=== PATIENT | male | born 1950 | race Caucasian/White ===

== ENCOUNTER 2017-01-03 15:26 | Emergency (ER) | payer BC, MEDICARE ==
[2017-01-03] MEDS ORDERED: diphenhydrAMINE 50 MG/ML SDV IVPUSH ONE (15:39)
[2017-01-03] MEDS ORDERED: Famotidine 20 MG/2 ML SDV IVPUSH ONE (15:39)
[2017-01-03] MEDS ORDERED: Sodium Chloride 0.9% 10 ML Syringe FLUSH PRN (15:39)
[2017-01-03] MEDS ORDERED: methylPREDNISolone Sodium Succinate 125 MG/2 ML SDV IVPUSH ONE (15:39)
[2017-01-03] MEDS ORDERED: Sodium Chloride 0.9% 2.5 ML Syringe FLUSH PRN (15:39)
--- NOTE | 2017-01-03 15:46 | EDM.PDOC ---
ED HPI Allergic Reaction - General Chief Complaint: Allergic Reaction Stated Complaint: POSSIBLE ALLERGIC REACTION Time Seen by Provider: 01/03/17 15:35 - History of Present Illness INITIAL COMMENTS - FREE TEXT/NARRATIVE: HISTORY AND PHYSICAL: History of present illness: Patient is a 66-year-old male with a history of hypertension and cardiac disease who presents with onset gradually of left sided home swelling that started approximately 3 hours ago. The patient states that he did not start suddenly and he does not recall any new foods products and has no known allergies to anything but penicillin. Patient states it is only the left side of his tongue that is bothering him and he is having no difficulty swallowing but due to the size of the tongue is having difficulty speaking. She does not feel short of breath he is not itchy and has no rashes. Earlier patient had no systemic complaints. Patient has a history of using lisinopril and has never had issues with it Review of systems: As per history of present illness and below otherwise all systems reviewed and negative. Past medical history: As per history of present illness and as reviewed below otherwise noncontributory. Surgical history: As per history of present illness and as reviewed below otherwise noncontributory. Social history: No reported history of drug or alcohol abuse. Family history: As per history of present illness and as reviewed below otherwise noncontributory. Physical exam: General: Well-developed well-nourished male who is nontoxic and vital signs were noted by me. He is handling his secretions and maintaining his airway but he does have technical difficulties was speaking due to the swelling of his tongue. HEENT: Atraumatic, normocephalic, pupils reactive, negative for conjunctival pallor or scleral icterus, mucous membranes moist, throat clear, neck supple, nontender, trachea midline. There is anterior cervical adenopathy which is nontender and bilateral and no posterior adenopathy or nuchal rigidity. There is no lip swelling or facial edema seen and the left side of the tongue is completely swollen with rotation of the tongue to the right as a result of this. Airway is patent trachea is midline Lungs: Clear to auscultation, breath sounds equal bilaterally, chest nontender. There is no wheezing or stridor appreciated and no work of breathing Heart: S1S2, regular, negative for clicks, rubs, or JVD. Abdomen: Soft, nondistended, nontender. NABS Skin: There is no evidence of any rashes or urticaria or color changes appreciated Genitourinary: Deferred. Rectal: Deferred. Extremities: Atraumatic, negative for cords or calf pain. Neurovascular unremarkable. Neuro: Awake, alert, oriented. Cranial nerves II through XII unremarkable. Cerebellum unremarkable. Motor and sensory unremarkable throughout. Exam nonfocal. Diagnostics: [] Therapeutics: IV Benadryl Solu-Medrol Pepcid Advised the patient that he needs to stop his lisinopril and contact his provider on Thursday to request a change in this medication. I will advise Benadryl every 6 hours for the next 24-36 hours as well as steroids for home. After his medications we will observe him for a period of time. As the symptoms started over 3 hours prior to coming to the ED the critical window of this edema is likely already passed. Impression: Angioedema of the tongue secondary to lisinopril use Definitive disposition and diagnosis as appropriate pending reevaluation and review of above. - Related Data Allergies/ADRs: Allergies Allergy/AdvReac Type Severity Reaction Status Date / Time Penicillins Allergy Hives Verified 01/03/17 15:37 Home Meds: Home Meds Dapagliflozin/Metformin HCl [Xigduo Xr 10 mg-1,000 mg Tab] 1 each PO DAILY 01/03 [History] Famotidine [Pepcid] 40 mg PO DAILY 01/03/17 [History] Gemfibrozil 600 mg PO BID 01/03/17 [History] Lisinopril 20 mg PO DAILY 01/03/17 [History] Venlafaxine [Effexor XR 24 Hr] 75 mg PO DAILY 01/03/17 [History] ED ROS ALLERGIC REACTION - Review of Systems Review Of Systems: ROS reveals no pertinent complaints other than HPI. ED EXAM GENERAL NO PERIP PULSE - Physical Exam Exam: See Below (See dictation) Course - Vital Signs Last Recorded V/S: Last Vital Signs Temp 36.7 C 01/03/17 16:09 Pulse 80 01/03/17 16:09 Resp 20 01/03/17 16:09 BP 139/89 01/03/17 16:09 Pulse Ox 93 L 01/03/17 16:09 - Orders/Labs/Meds Orders: Active Orders 24 hr Category Date Time Status Sodium Chloride 0.9% [Saline Flush] Med 01/03/17 15:39 Active 10 ml FLUSH ASDIRECTED PRN Sodium Chloride 0.9% [Saline Flush] Med 01/03/17 15:39 Active 2.5 ml FLUSH ASDIRECTED PRN Saline Lock Insert [OM.PC] Stat Oth 01/03/17 15:39 Ordered Medication Orders Sodium Chloride (Saline Flush) 10 ml FLUSH ASDIRECTED PRN PRN Reason: Keep Vein Open Sodium Chloride (Saline Flush) 2.5 ml FLUSH ASDIRECTED PRN PRN Reason: Keep Vein Open Meds: Medications Generic Name Dose Route Start Last Admin Trade Name Freq PRN Reason Stop Dose Admin Sodium Chloride 10 ml 01/03/17 15:39 Saline Flush FLUSH ASDIRECTED PRN Keep Vein Open Sodium Chloride 2.5 ml 01/03/17 15:39 Saline Flush FLUSH ASDIRECTED PRN Keep Vein Open Discontinued Medications Generic Name Dose Route Start Last Admin Trade Name Freq PRN Reason Stop Dose Admin Diphenhydramine HCl 50 mg 01/03/17 15:39 01/03/17 16:00 Benadryl IVPUSH 01/03/17 15:40 50 mg ONETIME ONE Administration Famotidine 20 mg 01/03/17 15:39 01/03/17 16:04 Pepcid IVPUSH 01/03/17 15:40 20 mg ONETIME ONE Administration Methylprednisolone Sodium Succinate 125 mg 01/03/17 15:39 01/03/17 16:02 Solu-Medrol IVPUSH 01/03/17 15:40 125 mg ONETIME ONE Administration Departure - Departure Time of Disposition: 16:12 Disposition: Home, Self-Care 01 Condition: good Clinical Impression: Angioedema Qualifiers: Encounter type: initial encounter Qualified Code(s): T78.3XXA - Angioneurotic edema, initial encounter Referrals: PCP,None [Primary Care Provider] - Additional Instructions: The following information is given to patients seen in the emergency department who are being discharged to home. This information is to outline your options for follow-up care. We provide all patients seen in our emergency department with a follow-up referral. The need for follow-up, as well as the timing and circumstances, are variable depending upon the specifics of your emergency department visit. If you don't have a primary care physician on staff, we will provide you with a referral. We always advise you to contact your personal physician following an emergency department visit to inform them of the circumstance of the visit and for follow-up with them and/or the need for any referrals to a consulting specialist. The emergency department will also refer you to a specialist when appropriate. This referral assures that you have the opportunity for followup care with a specialist. All of these measure are taken in an effort to provide you with optimal care, which includes your followup. Under all circumstances we always encourage you to contact your private physician who remains a resource for coordinating your care. When calling for followup care, please make the office aware that this follow-up is from your recent emergency room visit. If for any reason you are refused follow-up, please contact the [facility] emergency department at and ask to speak to the emergency department charge nurse. [facility] Primary care- Internal Medicine and Family [address] [address] Please take [id number] Benadryl 50 mg every 6 hours for the next 24-36 hours and then take it only as needed for rash swelling or itching. Please take steroids as ordered. Please stop taking the lisinopril as we discussed and contact her provider on Thursday for a replacement. Return to ER as needed and as discussed - My Orders Last 24 Hours: My Active Orders 01/03/17 15:39 Sodium Chloride 0.9% [Saline Flush] 10 ml FLUSH ASDIRECTED PRN Sodium Chloride 0.9% [Saline Flush] 2.5 ml FLUSH ASDIRECTED PRN Saline Lock Insert [OM.PC] Stat - Assessment/Plan Last 24 Hours: My Active Orders 01/03/17 15:39 Sodium Chloride 0.9% [Saline Flush] 10 ml FLUSH ASDIRECTED PRN Sodium Chloride 0.9% [Saline Flush] 2.5 ml FLUSH ASDIRECTED PRN Saline Lock Insert [OM.PC] Stat
[2017-01-03 17:05] VITALS: BP 151/81
== END 2017-01-03 17:11 | disposition home or self-care (01) ==
LOC: MW.ED 15:26
DX: T78.3XXA Angioneurotic edema, initial encounter (principal); Z88.0 Allergy status to penicillin; Z79.899 Other long term (current) drug therapy
CPT/HCPCS: 96374; 96375; 99284; J1200; J2930

== ENCOUNTER 2018-05-10 08:02 | Day surgery (SDC) | payer MEDICARE ==
[~2018-05-10 08:02] MED LIST: Lactated Ringers 1,000 ML IV SCH; Midazolam 1 MG/ML 2 ML SDV ONE; Propofol 200 MG/20 ML SDV ONE; Sodium Chloride 0.9% 10 ML Syringe FLUSH PRN; Sodium Chloride 0.9% 2.5 ML Syringe FLUSH PRN
--- NOTE | 2018-05-10 08:40 | PCM.PREANE ---
Preanesthetic Assessment - Anesthesia/Transfusion/Family Hx Anesthesia History: Prior Anesthesia Without Reaction Family History of Anesthesia Reaction: No Transfusion History: No Prior Transfusion(s) - Review of Systems General: No Symptoms Pulmonary: No Symptoms Cardiovascular: No Symptoms Gastrointestinal: No Symptoms Neurological: No Symptoms Other: Reports: None - Physical Assessment NPO Status Date: 05/09/18 Height: 1.83 m Weight: 98.883 kg ASA Class: 3 Mental Status: Alert & Oriented x3 Airway Class: Mallampati = 1 Dentition: Reports: Normal Dentition ROM/Head Extension: Full Lungs: Clear to Auscultation, Normal Respiratory Effort Cardiovascular: Regular Rate, Regular Rhythm - Allergies Allergies/Adverse Reactions: Allergies Allergy/AdvReac Type Severity Reaction Status Date / Time Iodinated Contrast- Oral and Allergy Hives Verified 05/05/18 10:54 IV Dye lisinopril Allergy angioedema Verified 05/05/18 10:54 Penicillins Allergy flushing Verified 05/05/18 10:54 - Anesthesia Plan Pre-Op Medication Ordered: None - Acknowledgements Anesthesia Type Planned: MAC Pt an Appropriate Candidate for the Planned Anesthesia: Yes Alternatives and Risks of Anesthesia Discussed w Pt/Guardian: Yes Pt/Guardian Understands and Agrees with Anesthesia Plan: Yes Additional Comments: PMH: CAD, s/p coronary stents in and 2002, last ASA 48 hr ago, DM2- glucose = 134 this am, hld, smoker PreAnesthesia Questionnaire HEENT History: Reports: Allergic Rhinitis Cardiovascular History: Reports: Arrhythmia, Hypertension, VA, Stents Gastrointestinal History: Reports: GERD Musculoskeletal History: Reports: Fracture Other Musculoskeletal History: hx fx collarbone Neurological History: Reports: Concussion Psychiatric History: Reports: Depression Endocrine/Metabolic History: Reports: Diabetes, Type II Oncologic (Cancer) History: Reports: Squamous Cell Carcinoma Other Oncologic History: skin cancer rt arm Dermatologic History: Reports: None - Past Surgical History Head Surgeries/Procedures: Reports: None Cardiovascular Surgical History: Reports: Coronary Artery Stent Musculoskeletal Surgical History: Reports: Shoulder Surgery Other Musculoskeletal Surgeries/Procedures:: shoulder surgery for fx collarbone Dermatological Surgical History: Reports: Skin Biopsy - SUBSTANCE USE Smoking Status *Q: Current Every Day Smoker Tobacco Use Within Last Twelve Months: Cigarettes Recreational Drug Use History: No - HOME MEDS Home Medications: Home Meds Dapagliflozin/Metformin HCl [Xigduo Xr 10 mg-1,000 mg Tab] 1 tab PO DAILY [History] Famotidine [Pepcid] 40 mg PO DAILY 01/03/17 [History] Gemfibrozil 600 mg PO BID 01/03/17 [History] Venlafaxine [Effexor XR 24 Hr] 75 mg PO DAILY 01/03/17 [History] Aspirin [Sallis Aspirin] 81 mg PO DAILY 05/05/18 [History] Cyanocobalamin (Vitamin B12) [Vitamin B12] 100 mcg PO DAILY 05/05/18 [History] Diltiazem HCl [Cartia Xt] 180 mg PO DAILY 05/05/18 [History] Nitroglycerin 0.4 mg SL ASDIRECTED PRN 05/05/18 [History] - CURRENT (IN HOUSE) MEDS Current Meds: Current Medications Lactated Ringer's (Ringers, Lactated) 1,000 mls @ 125 mls/hr IV ASDIRECTED LIZBETH Sodium Chloride (Saline Flush) 10 ml FLUSH ASDIRECTED PRN PRN Reason: Keep Vein Open Sodium Chloride (Saline Flush) 2.5 ml FLUSH ASDIRECTED PRN PRN Reason: Keep Vein Open Sodium Chloride (Saline Flush) 10 ml FLUSH ASDIRECTED PRN PRN Reason: Keep Vein Open Sodium Chloride (Saline Flush) 2.5 ml FLUSH ASDIRECTED PRN PRN Reason: Keep Vein Open Discontinued Medications Midazolam HCl (Versed 1 Mg/Ml) Confirm Administered Dose 2 mg .ROUTE .STK-MED ONE Stop: 05/10/18 07:24 Propofol (Diprivan 20 Ml) Confirm Administered Dose 200 mg .ROUTE .STK-MED ONE Stop: 05/10/18 07:23
[2018-05-10] MEDS ORDERED: Propofol 200 MG/20 ML SDV ONE ×2 (09:34→09:55)
[2018-05-10] MEDS ORDERED: Sodium Chloride 0.9% 10 ML Syringe FLUSH PRN (10:03)
[2018-05-10] MEDS ORDERED: Sodium Chloride 0.9% 2.5 ML Syringe FLUSH PRN (10:03)
[2018-05-10] MEDS ORDERED: Ondansetron 4 MG/2 ML SDV IVPUSH PRN (10:03)
--- NOTE | 2018-05-10 10:05 | PCM.OPNOTE ---
- General Post-Op/Procedure Note Date of Surgery/Procedure: 05/10/18 Operative Procedure(s): Colonoscopy with cold ascending colon, proximal sigmoid , distal sigmoid, proximal rectum and distal rectal polypectomies. Pre Op Diagnosis: Family history of colon cancer in father and sister. Desire for colorectal cancer screening. Post-Op Diagnosis: Colon polyps in the descending colon, sigmoid colon and rectum. Anesthesia Technique: MAC (ASA III) Primary Surgeon: Ortiz Robledo Director Patient: Yoni Vidales Condition: Good Free Text/Narrative:: DICTATION [id number] CPT CODE 55810
--- NOTE | 2018-05-10 10:16 | PCM.POSTAN ---
POST ANESTHESIA ASSESSMENT - MENTAL STATUS Mental Status: Alert - RESPIRATORY Respiratory Status: Respiratory Rate WNL - CARDIOVASCULAR CV Status: Pulse Rate WNL - GASTROINTESTINAL GI Status: No Symptoms - POST OP HYDRATION Hydration Status: Adequate & Stable
--- NOTE | 2018-05-10 10:18 | PCM48HPAN ---
Post Anesthesia Note - EVALUATION WITHIN 48HRS OF ANESTHETIC Vital Signs in Normal Range: Yes Patient Participated in Evaluation: Yes Respiratory Function Stable: Yes Airway Patent: Yes Cardiovascular Function Stable: Yes Hydration Status Stable: Yes Pain Control Satisfactory: Yes Nausea and Vomiting Control Satisfactory: Yes Mental Status Recovered: Yes Resp Rate: 19
--- NOTE | 2018-05-10 12:32 | OR ---
SURGEON: Ortiz Robledo M.D. DATE OF PROCEDURE: 05/10/2018 OPERATION PERFORMED: Colonoscopy with multiple cold polypectomies from the descending colon, sigmoid colon, and rectum. WORLD TRAVEL COUNSELOR: Dr. Lackey, PGY2 ANESTHESIA: MAC. ASA CLASSIFICATION: III. PREOPERATIVE DIAGNOSES: 1. Family history of colon cancer in father and sister. 2. Desire for colorectal cancer screening. POSTOPERATIVE DIAGNOSIS: Colon polyps in the descending colon, sigmoid colon, proximal and distal rectum. DESCRIPTION OF PROCEDURE: The patient was taken to the endoscopy room positioned on the endoscopy table in the left lateral decubitus position. Time-out was called for appropriate identification of the patient and procedure. Monitored anesthesia care was provided. The colonoscope was inserted into the rectum and advanced with moderate difficulty to the cecum where the colonoscope was retroflexed to visualize the ascending colon from below. The colonoscope was then straightened and slowly withdrawn. The cecum, ascending colon, hepatic flexure, transverse colon, and splenic flexure showed no tumors, polyps, diverticula, or angiodysplastic changes. Small polyps were encountered in the descending colon proximal and distal sigmoid colon and proximal and distal rectum. These were removed with the cold biopsy forceps and sent for separate histologic analysis. Once the colonoscope was withdrawn to the rectum, it was retroflexed to visualize the anal orifice from above. No tumors, polyps, or acute hemorrhoidal changes were noted. The colonoscope was then straightened. The rectum aspirated, and the colonoscope removed. The patient tolerated the procedure well and was taken to recovery room in satisfactory condition. ADELINE / DUNIA /[id number]
[2018-05-10 12:54] VITALS: BP 146/86
== END 2018-05-10 10:40 | disposition home or self-care (01) ==
LOC: MW.SDS 08:02
PROVIDERS: ATTEND Surgery
DX: Z12.11 Encounter for screening for malignant neoplasm of colon (principal); D12.4 Benign neoplasm of descending colon; D12.5 Benign neoplasm of sigmoid colon; D12.8 Benign neoplasm of rectum; K63.5 Polyp of colon; I25.10 Atherosclerotic heart disease of native coronary artery without angina pectoris; E11.9 Type 2 diabetes mellitus without complications; E78.00 Pure hypercholesterolemia, unspecified; F17.210 Nicotine dependence, cigarettes, uncomplicated; Z88.0 Allergy status to penicillin; Z88.8 Allergy status to other drugs, medicaments and biological substances; Z91.041 Radiographic dye allergy status; Z79.82 Long term (current) use of aspirin; Z79.4 Long term (current) use of insulin; Z79.899 Other long term (current) drug therapy; Z80.0 Family history of malignant neoplasm of digestive organs
CPT/HCPCS: 45380; 82962; 88305; J2250; J2704; J7120